=== PATIENT | male | born 1975 | race Caucasian/White ===

== ENCOUNTER 2025-09-23 09:46 | Day surgery (SDC) | payer OTHER, SELFPAY ==
[2025-09-23 10:04] VITALS: BP 117/79; PULSE 79; RESP 18; TEMP 36.3; O2SAT 100; BMI 28.8
--- NOTE | 2025-09-23 10:28 | ANES.PREANE2 ---
Pre-Anesthetic Assessment Height/Weight: Height 1.75 m Weight 88.451 kg Temp Pulse Resp BP Pulse Ox O2 Del Method 97.3 F L 79 18 117/79 100 Room Air 09/23/25 10:04 09/23/25 10:04 09/23/25 10:04 09/23/25 10:04 09/23/25 10:04 09/23/25 10:04 Operation Date: 09/23/25 11:30 Proposed Procedures p EGD EGD with Biopsy [id number](Not Applicable) - Jaxon Parra MD Familial anesthetic complications: None Was Beta Makenna taken within 24 hours: N/A Was Clonidine taken within 24 hours: N/A Last intake: Intake Last Liquid Date 09/22/25 Last Liquid Time 23:50 Last Solid Date 09/22/25 Last Solid Time 19:45 Social No alcohol and No tobacco E-cigarettes Exam alert, oriented x 3, clear to auscultation bilaterally and regular rate & rhythm Airway Mallampati: Class III Dentition: full Metabolic Hyperlipidemia Anesthetic Plan ASA status: 2 Anesthesia: MAC Risk of > 500 ml blood loss (7ml/kg in children): No Medications/Allergies Home Medications ?Medication ?Instructions ?Recorded ?Confirmed ?Last Taken ?Type acetaminophen 325 mg capsule 325 mg PO QID PRN pain or fever 09/11/25 09/23/25 09/22/25 History amlodipine 5 mg tablet 5 mg PO DAILY 09/11/25 09/23/25 09/22/25 History aspirin 325 mg tablet 325 mg PO DAILY 09/11/25 09/23/25 09/22/25 History calcium 315 mg (as 1 tab PO DAILY 09/11/25 09/23/25 09/22/25 History citrate)-vitamin D3 6.25 mcg (250 unit) tablet (Citracal + Vitamin D Maximum) coenzyme Q10 75 mg capsule (Ultra 75 mg PO DAILY 09/11/25 09/23/25 09/22/25 History CoQ10) cyclobenzaprine 10 mg tablet 10 mg PO DAILY 09/11/25 09/23/25 09/22/25 History fish oil-dha-epa 1,200 mg-144 1 cap PO DAILY 09/11/25 09/23/25 09/22/25 History mg-216 mg capsule lactobacillus combination no.9 4 4,000 mmu cells PO DAILY 09/11/25 09/23/25 09/22/25 History billion cell capsule (Adult 50 Plus Probiotic) meloxicam 15 mg tablet 15 mg PO DAILY 09/11/25 09/23/25 09/22/25 History uyruawmp-yvf-thdxh acid 0.4 1 tab PO DAILY 09/11/25 09/23/25 09/22/25 History mg-lycopene 300 mcg-lutein 250 mcg tablet (Centrum Silver) rosuvastatin 10 mg tablet 10 mg PO DAILY 09/11/25 09/23/25 09/22/25 History semaglutide (weight loss) 1.7 1.7 mg SUBCUT Q7D 09/11/25 09/23/25 09/11/25 History mg/0.75 mL subcutaneous pen injector (Shwetha) Allergies Allergy/AdvReac Type Severity Reaction Status Date / Time bee venom protein (honey bee) Allergy ADR-Swelling Verified 09/23/25 10:02 of the Eye Current Medications Generic Name Dose Route Start Last Admin Trade Name Freq PRN Reason Stop Dose Admin Sodium Chloride 1,000 mls @ 15 mls/hr 09/23/25 10:02 09/23/25 10:20 Sodium Chloride 0.9% IV 09/24/25 10:01 15 mls/hr .Q24H PRN Administration COLONOSCOPY FLUIDS PFSH Anesthesia Family History (Updated 09/11/25 @ 09:13 by ABIGAIL Adams) Father Cancer bladder Social History Smoking and tobacco/nicotine status: current every day tobacco/nicotine user (vape w/ nicotine)
--- NOTE | 2025-09-23 10:31 | W.PM.OPSUD ---
Surgery/Procedure H&P Update DATE OF PROCEDURE: September 23, 2025 DATE H&P PERFORMED: 09/11/25 H&P UPDATE INFORMATION: I have reviewed H&P completed within last 30 days, I have examined patient prior to procedure, No changes to prior documentation and Risks and benefits of the procedure reviewed PLANNED PROCEDURE: Operation Date: 09/23/25 11:30 Proposed Procedures p EGD EGD with Biopsy [id number](Not Applicable) - Jaxon Parra MD
[2025-09-23 10:48] VITALS: BP 90/62; PULSE 84; RESP 16; TEMP 36.3; O2SAT 97
[2025-09-23 10:59] VITALS: BP 102/57; PULSE 81; RESP 16; O2SAT 97
--- NOTE | 2025-09-23 11:20 | ANE.PACU2 ---
Inpatient post-anesthesia follow up: Airway intact: Yes Vital signs: Temperature 97.3 F Pulse Rate 81 Respiratory Rate 16 Blood Pressure 102/57 Pulse Oximetry 97 Oxygen Delivery Me thod Room Air Oxygen Flow Rate Fraction of Inspir ed Oxygen Hydration adequate: Yes Nausea and vomiting: No Pain level: 1 Mental status: Baseline
== END 2025-09-23 11:20 | disposition home or self-care (01) ==
PROVIDERS: PCP Family Medicine Geriatric Medicine; Visit Provider Student in an Organized Health Care Education/Training Program
PROC: 0DJ08ZZ Inspection of Upper Intestinal Tract, Via Natural or Artificial Opening Endoscopic (ICD-10-PCS; principal; 2025-09-23 11:30)
DX: R10.9 Unspecified abdominal pain (principal); K21.9 Gastro-esophageal reflux disease without esophagitis; K29.80 Duodenitis without bleeding; K29.70 Gastritis, unspecified, without bleeding; E78.5 Hyperlipidemia, unspecified; Z79.82 Long term (current) use of aspirin; Z80.52 Family history of malignant neoplasm of bladder; F17.290 Nicotine dependence, other tobacco product, uncomplicated
CPT/HCPCS: 43239; 88305; J2704; J7030